=== PATIENT | male | born 1990 | race Caucasian/White ===

== ENCOUNTER 2016-10-27 13:18 | Emergency (ER) | payer MEDICAID, OTHER ==
[~2016-10-27] VITALS: Ht 185.4 cm; Wt 70.0 kg
[~2016-10-27 13:18] MED LIST: CEPH-460 PO; INSU1INJ5 SQ; NOVOINJ3 SQ; PERC5TAB12 PO; WALKER WHEELS/F1 MIS
[2016-10-27 13:25] VITALS: BP 103/68; PULSE 112; RESP 20; TEMP 98; O2SAT 100
[2016-10-27] MEDS ORDERED: INSULIN HUMAN REGULAR 1,000 UNITS/10 ML VIAL SQ ONE ×2 (13:45→15:30)
[2016-10-27] MEDS ORDERED: ONDANSETRON HCL 4 MG/2 ML VIAL IV PUSH ONE (13:45)
[2016-10-27] MEDS ORDERED: SODIUM CHLOR 0.9% 1000 ML INJ 1,000 ML IV ONE ×3 (13:45→16:00)
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
[2016-10-27 13:56] LABS: BASOPHIL % 0.2 % (0.0-2.0); EOSINOPHIL # 0.1 TH/MM3 (0-0.4); HEMATOCRIT 43.3 % (39.0-51.0); HEMO FLAGS DIFF FINAL; LYMPH % 24.1 % (9.0-44.0); LYMPHOCYTE # 2.1 TH/MM3 (1.0-4.8); MEAN CELL VOLUME 80.9 FL (80.0-100.0); MEAN CORPUSCULAR HEMOGLOBIN 26.7 PG (27.0-34.0); MONO % 4.6 % (0.0-8.0); NEUT % 70.1 % (16.0-70.0); PLATELET COUNT 308 TH/MM3 (150-450); RED BLOOD COUNT 5.35 MIL/MM3 (4.50-5.90); RED CELL DISTRIBUTION WIDTH 14.9 % (11.6-17.2); WHITE BLOOD COUNT 8.6 TH/MM3 (4.0-11.0)
[2016-10-27 14:00] VITALS: BP 127/60; PULSE 83; RESP 16; O2SAT 100
[2016-10-27 14:01] LABS: BLOOD, URINE NEG (NEG); KETONE, URINE 40 mg/dL (NEG); NITRITE,URINE NEG (NEG)
[2016-10-27 14:02] LABS: GLUCOSE,URINE 1000 OR GREATER mg/dL (NEG); METHOD OF COLLECTION CLEAN CATCH; URINE COLOR STRAW (YELLW/STRAW)
[2016-10-27 14:03] LABS: CHLORIDE 96 MEQ/L (98-107); POTASSIUM 4.9 MEQ/L (3.5-5.1); SODIUM (NA) 133 MEQ/L (136-145)
[2016-10-27 14:07] LABS: ANION GAP 14 MEQ/L (5-15); BICARBONATE 22.6 MEQ/L (21.0-32.0); BLOOD UREA NITROGEN 19 MG/DL (7-18)
[2016-10-27 14:08] LABS: COMMENT (UR) CULT NOT INDICATED; CULTURE IF INDICATED CULT NOT INDICATED; RBC, URINE 0-3 /hpf (0-3); SQUAMOUS EPITHELIAL CELL URINE 0-5 /hpf (0-5)
[2016-10-27 14:10] LABS: ALT (GPT) 21 U/L (12-78); AST (GOT) 17 U/L (15-37); GLOMERULAR FILTRATION RATE 73 ML/MIN (>89)
[2016-10-27 14:21] LABS: ALKALINE PHOSPHATASE 156 U/L (45-117); TOTAL BILIRUBIN ADULT 1.4 MG/DL (0.2-1.0)
[2016-10-27 15:00] VITALS: BP 105/62; PULSE 88; RESP 16; O2SAT 92
[2016-12-20] MEDS ORDERED: INSU1INJ5 SQ ×2 (09:20→09:59)
[2016-12-20] MEDS ORDERED: NOVOINJ3 SQ ×2 (09:20→09:59)
[2016-12-20] MEDS ORDERED: RANI150T PO (10:03)
[2017-01-24] MEDS ORDERED: BLOOD GLUCOSE T1 TES (17:29)
== END 2016-10-27 17:03 | disposition home or self-care (01) ==
LOC: PHED 13:18
DX: E10.65 Type 1 diabetes mellitus with hyperglycemia (principal); Z79.4 Long term (current) use of insulin
CPT/HCPCS: 80053; 81001; 82010; 83690; 85025; 96361; 96372; 96374; 99284; J1815; J2405; J7030